=== PATIENT | female | born 1990 | race Caucasian/White ===

== ENCOUNTER 2016-09-23 04:00 | Inpatient (IN) | payer MEDICAID ==
[~2016-09-23] VITALS: Ht 134.6 cm; Wt 94.3 kg
[2016-09-23] MEDS ORDERED: PREN-546 PO (04:54)
[2016-09-23] MEDS ORDERED: OXYTOCIN 10 UNITS/ML VIAL IM SCH (04:55)
[2016-09-23 05:51] LABS: BASOPHILS % (AUTO) 0.2 % (0.0-2.0); EOSINOPHILS # (AUTO) 0.2 K/uL (0-0.4); EOSINOPHILS % (AUTO) 1.1 % (0.0-4.0); HEMOGLOBIN 12.1 g/dL (12.0-16.0); LYMPHOCYTES # (AUTO) 1.3 K/uL (2.5-16.5); LYMPHOCYTES % (AUTO) 8.9 % (20.5-51.1); MEAN CORPUSCULAR HEMOGLOBIN 29 pg (27-31); MEAN CORPUSCULAR HGB CONC 34 g/dL (33-37); MEAN CORPUSCULAR VOLUME 87 fL (80-94); MONOCYTES # (AUTO) 0.5 K/uL (0.8-1.0); MONOCYTES % (AUTO) 3.8 % (1.7-9.3); NEUTROPHILS # (AUTO) 12.2 K/uL (1.8-7.7); PLATELET COUNT (AUTO) 256 K/uL (140-450); RED BLOOD CELL COUNT(AUTO) 4.12 MIL/uL (4.20-5.40); RED CELL DISTRIBUTION WIDTH 13.6 % (11.6-13.7); WHITE BLOOD COUNT (AUTO) 14.2 K/uL (4.8-10.8)
[2016-09-23] MEDS ORDERED: BENZOCAINE/MENTHOL 20%-0.5% 60 GM CAN TP PRN (07:55)
[2016-09-23] MEDS ORDERED: WITCH HAZEL 40 PAD PACKAGE TP PRN (07:55)
[2016-09-23] MEDS ORDERED: METHYLERGONOVINE 0.2 MG/ML AMP IM PRN (07:55)
[2016-09-23] MEDS ORDERED: MEASLES, MUMPS, AND RUBELLA 1 VIAL SQVAC PRN ×2 (07:55→16:00)
[2016-09-23] MEDS ORDERED: HYDROcodone/APAP 5/325 MG 1 TAB TAB PO PRN (07:55)
[2016-09-23] MEDS ORDERED: TEMAZEPAM 15 MG CAP PO PRN (07:55)
[2016-09-23] MEDS ORDERED: SODIUM PHOSPHATE 118 ML ENEM RC PRN (07:55)
[2016-09-23] MEDS ORDERED: ACETAMINOPHEN EXTRA STRENGTH 500 MG TAB PO PRN (07:55)
--- NOTE | 2016-09-23 07:59 | NUR ---
PATIENT HAS BEEN SCREENED AND CATEGORIZED LOW NUTRITION RISK. PATIENT WILL BE SEEN WITHIN 7 DAYS OF ADMISSION. 09/29/[address]
[2016-09-23] MEDS ORDERED: INFLUENZA VIRUS VACCINE QUAD 0.5 ML SYR IMVAC SCH (11:00)
[2016-09-23] MEDS ORDERED: OXYTOCIN 20 UNITS/LR PREMIX 1,000 ML IV SCH (15:57)
[2016-09-23] MEDS ORDERED: KETOROLAC 30 MG/ML VIAL IVP PRN (16:00)
[2016-09-23] MEDS ORDERED: HYDROmorphone 1 MG/ML AMP IVP PRN (16:00)
[2016-09-23] MEDS ORDERED: DOCUSATE SOD/SENNA 50/8.6 MG 1 TAB PO SCH (21:00)
[2016-09-24 06:28] LABS: HEMATOCRIT 32.4 % (36-48); HEMOGLOBIN 10.8 g/dL (12.0-16.0)
[2016-09-24] MEDS ORDERED: IBUPROFEN 600 MG TAB PO PRN (22:00)
[2016-09-25] MEDS ORDERED: SODIUM PHOSPHATE 118 ML ENEM RC PRN (08:00)
[2016-09-25] MEDS ORDERED: oxyCODONE/APAP 5/325 MG 1 TAB TAB PO PRN (08:00)
[2016-09-25] MEDS ORDERED: DOCUSATE SODIUM 100 MG GELCAP PO PRN (08:00)
[2016-09-25] MEDS ORDERED: BISACODYL 5 MG TABEC PO PRN (08:00)
[2016-09-25] MEDS ORDERED: SIMETHICONE 80 MG TAB.CHEW PO PRN (08:00)
[2016-09-25] MEDS ORDERED: FERR325E14 PO (14:14)
[2016-09-25] MEDS ORDERED: ACET-9800 PO (14:15)
== END 2016-09-25 21:08 | disposition home or self-care (01) | DRG 560 ==
LOC: MLD 04:00 → MFCC 07:59
PROVIDERS: ADMIT Obstetrics & Gynecology; ATTEND Obstetrics & Gynecology
PROC: 10E0XZZ Delivery of Products of Conception, External Approach (ICD-10-PCS; principal; 2016-09-23)
PROC: 3E0234Z Introduction of Serum, Toxoid and Vaccine into Muscle, Percutaneous Approach (ICD-10-PCS; 2016-09-23)
DX: O80 Encounter for full-term uncomplicated delivery (principal); Z23 Encounter for immunization; Z37.0 Single live birth; Z3A.39 39 weeks gestation of pregnancy; Z79.899 Other long term (current) drug therapy
CPT/HCPCS: 36415; 59409; 85018; 85025; 86592; 86706; 86762; 86886; 86900; 86901; 90715

== ENCOUNTER 2016-10-03 08:30 | Observation (INO) | payer MEDICAID ==
[~2016-10-03] VITALS: Ht 147.3 cm; Wt 88.0 kg
[~2016-10-03 08:30] MED LIST: ACET-9800 PO; FERR325E14 PO; PREN-546 PO
[2016-10-03 08:40] VITALS: BP 152/95
--- NOTE | 2016-10-03 08:48 | NUR ---
Patient ambulated to bed 03.
--- NOTE | 2016-10-03 08:52 | NUR ---
DENAE Pandya at bedside to evaluate patient.
--- NOTE | 2016-10-03 08:52 | NUR ---
PATIENT PRESENTS TO ED WITH RUQ/RLQ PAIN RADIATING R FLANK . PT STATES HAS HAD DIARRHEA / LOOSE STOOLS X1 WK---[SKIN IS PINK/WARM/DRY; AAOX4 WITH EVEN AND STEADY GAIT; LUNGS CLEAR BL; HR EVEN AND REGULAR; PT DENIES ANY FEVER, CP, SOB, OR COUGH AT THIS TIME; PATIENT STATES PAIN OF 10/10 AT THIS TIME; VSS; PATIENT POSITIONED FOR COMFORT; HOB ELEVATED; BEDRAILS UP X2; BED DOWN. ER MD MADE AWARE OF PT STATUS.
[2016-10-03] MEDS ORDERED: MORPHINE SULFATE 4 MG/ML SYR IM ONE (09:10)
[2016-10-03] MEDS ORDERED: NACL 0.9% 1,000 ML IV SCH (09:10)
[2016-10-03] MEDS ORDERED: ONDANSETRON 4 MG/2 ML VIAL IVP ONE (09:10)
[2016-10-03] MEDS ORDERED: ONDANSETRON 4 MG/2 ML VIAL ONE (09:18)
[2016-10-03] MEDS ORDERED: MORPHINE SULFATE 4 MG/ML SYR ONE (09:19)
[2016-10-03 09:32] LABS: BASOPHILS # (AUTO) 0.2 K/uL (0.00-0.22); BASOPHILS % (AUTO) 1.8 % (0.0-2.0); EOSINOPHILS # (AUTO) 0.2 K/uL (0-0.4); EOSINOPHILS % (AUTO) 1.5 % (0.0-4.0); HEMATOCRIT 40.7 % (36-48); HEMOGLOBIN 13.3 g/dL (12.0-16.0); LYMPHOCYTES # (AUTO) 1.4 K/uL (2.5-16.5); LYMPHOCYTES % (AUTO) 13.6 % (20.5-51.1); MEAN CORPUSCULAR HEMOGLOBIN 29 pg (27-31); MEAN CORPUSCULAR HGB CONC 33 g/dL (33-37); MEAN CORPUSCULAR VOLUME 88 fL (80-94); MONOCYTES # (AUTO) 0.2 K/uL (0.8-1.0); NEUTROPHILS # (AUTO) 8.1 K/uL (1.8-7.7); PLATELET COUNT (AUTO) 419 K/uL (140-450); RED BLOOD CELL COUNT(AUTO) 4.64 MIL/uL (4.20-5.40); RED CELL DISTRIBUTION WIDTH 14.1 % (11.6-13.7); WHITE BLOOD COUNT (AUTO) 10.1 K/uL (4.8-10.8)
[2016-10-03 09:34] LABS: APPEARANCE,URINE SL CLOUDY (CLEAR); BILIRUBIN,URINE NEGATIVE (NEGATIVE); BLOOD, URINE 3+ (NEGATIVE); COLOR,URINE YELLOW (YELLOW); LEUKOCYTE ESTERASE ,URINE NEGATIVE (NEGATIVE); NITRITE, URINE NEGATIVE (NEGATIVE); PH,URINE 5.5 (5.0-9.0); PROTEIN,URINE 2+ (NEGATIVE); UGLUCOSE NEGATIVE (NEGATIVE); UROBILINOGEN,URINE 0.2 EU/dL (0.2 - 1)
[2016-10-03 09:48] LABS: BACTERIA,URINE OCCASSIONAL /HPF (None Seen); SQUAMOUS EPITHELIAL CELL,UR 0-3 (FEW) /LPF (0-3 (FEW))
[2016-10-03 09:48] LABS: ALBUMIN 3.1 g/dL (3.4-5.0); ANION GAP 15.2 (8-16); CALCIUM 8.3 mg/dL (8.5-10.1); CARBON DIOXIDE 22.8 mmol/L (21-32); CREATININE 0.7 mg/dL (0.6-1.3); TOTAL BILIRUBIN 0.7 mg/dL (0.0-1.0); TOTAL PROTEIN, SERUM 7.3 g/dL (6.4-8.2)
[2016-10-03 09:49] LABS: MUCUS,URINE 1+ /LPF (None Seen)
[2016-10-03 09:50] LABS: WBC,URINE 0-2 /HPF (0-5)
[2016-10-03 09:51] LABS: NEUTROPHILS % (AUTO) 81.1 % (42.2-75.2)
[2016-10-03] MEDS ORDERED: MORPHINE SULFATE 4 MG/ML SYR IVP ONE (10:10)
--- NOTE | 2016-10-03 10:22 | NUR ---
Patient going to CT via stephan nash.
--- NOTE | 2016-10-03 10:40 | NUR ---
RETURNED FROM CT
--- NOTE | 2016-10-03 12:34 | NUR ---
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 PT C/O PAIN NOW---WILL MEDICATE AND CONTINUE TO OBSERVE FOR PAIN CONTROL
[2016-10-03] MEDS ORDERED: MORPHINE SULFATE 10 MG/ML SYR IVP ONE (12:35)
--- NOTE | 2016-10-03 12:48 | NUR ---
PENDING ADMISSION-- AND PT INFORMED---MEDICATED WRITTEN, WILL CONTINUE TO OBSERVE AND MONITOR FOR PAIN CONTROL---X2 SR UP JORGEERNEY LOW AND LOCKED POSITION. PT ON MONITOR
[2016-10-03] MEDS: NACL 0.9% 1,000 ML IV SCH ×2 (12:56→16:10)
[2016-10-03] MEDS ORDERED: ACETAMINOPHEN 325 MG TAB PO PRN (13:00)
[2016-10-03] MEDS ORDERED: ONDANSETRON 4 MG/2 ML VIAL IVP PRN (13:00)
[2016-10-03] MEDS ORDERED: HYDROcodone/APAP 5/325 MG 1 TAB TAB PO PRN (13:00)
--- NOTE | 2016-10-03 13:08 | NUR ---
X-Ray at bedside.
--- NOTE | 2016-10-03 14:00 | NUR ---
Patient will be admitted to care of . Admited to . Will go to room. Belongings list completed. Report to .
[2016-10-03 14:12] LABS: CHOL/HDL RATIO 4.4 (1-4.5)
[2016-10-03 14:35] LABS: FREE T4 (FREE THYROXINE) 0.94 ng/dL (0.76-1.46); THYROID STIMULATING HORMONE 0.71 uIU/mL (0.34-3.76)
--- NOTE | 2016-10-03 15:30 | NUR ---
PT ADMITTED FROM ER WITH C/O INTRACTABLE ABDOMINAL PAIN. MEDICATED IN ER WITH MS. PATIENT AAOX4. AMBULATORY WITH ASSIST. IV PATENT AND INTACT. C/O ABD PAIN THAT RADIATES TO LEFT UPPER BACK. PATIENT HAD VAGINAL DELIVERY 10 DAYS AGO WITH NO COMPLICATIONS. PATIENT HAS NAUSEA WITH NO VOMITING AT THIS TIME. CALL LIGHT WITHIN REACH. ORIENTED PT TO HOSPITAL ENVIRONMENT, SAFETY MEASURES ENSURED. WILL CONTINUE TO MONITOR.
[2016-10-03 16:00] VITALS: BP 128/89
[2016-10-03] MEDS: MORPHINE SULFATE 2 MG/ML SYR IVP PRN ×2 (18:36→20:22)
--- NOTE | 2016-10-03 19:05 | NUR ---
RECEIVED REPORT FROM MARIA ALEJANDRA GOINS AT BEDSIDE. INITIAL ASSESSMENT COMPLETED. PT AAOX4. PT'S FAMILY AT BED SIDE. PT STABLE; PT DENIES PAIN OR DISCOMFORT. PT HAS IV TO RIGHT FOREARM G 20; ASYMPTOMATIC, PATENT AND INTACT. PT'S SKIN IS INTACT. ORIENTED PT TO ROOM AND SURROUNDINGS AND USE OF CALL LIGHT. EXPLAINED PLAN OF CARE TO PT AND SHE VERBALIZES UNDERSTANDING. WILL CONTINUE TO MONITOR PT. CALL LIGHT WITHIN REACH.
--- NOTE | 2016-10-03 19:25 | NUR ---
ENDORSED PLAN OF CARE TO RN YAAKOV AT PT BEDSIDE. PT DENIES DISCOMFORT. FAMILY AT BEDSIDE. NO S/S OF ACUTE DISTRESS.
[2016-10-03 20:00] VITALS: BP 138/85
--- NOTE | 2016-10-03 20:25 | NUR ---
PT MEDICATED FOR PAIN 01/06. VS STABLE, WILL CONTINUE TO MONITOR PT.
--- NOTE | 2016-10-03 21:00 | NUR ---
PT STATED THAT SHE FEELS BETTER. SHE STATES THAT SHE IS NOT IN PAIN. CALL LIGHT WITHIN REACH.
--- NOTE | 2016-10-03 23:20 | NUR ---
PT STABLE. PT SLEEPING COMFORTABLY IN BED. WILL CONTINUE TO MONITOR PT.
[2016-10-04] VITALS: BP 130/84
--- NOTE | 2016-10-04 00:52 | NUR ---
PT AMBULATED TO THE RESTROOM. PT STABLE, PT BACK IN BED. CALL LIGHT WITHIN REACH.
[2016-10-04] MEDS: NACL 0.9% 1,000 ML IV SCH (02:30)
--- NOTE | 2016-10-04 03:19 | NUR ---
PT COMPLAINING OF BACK PAIN 02/06. VS STABLE, WILL MEDICATE ORDERED.
[2016-10-04] MEDS: MORPHINE SULFATE 2 MG/ML SYR IVP PRN (03:22)
[2016-10-04 04:00] VITALS: BP 131/87
--- NOTE | 2016-10-04 05:05 | NUR ---
PT REQUESTED TO GET IV DISCONNECTED TO USE THE RESTROOM. PT BACK IN BED NOW. CALL LIGHT WITHIN REACH.
[2016-10-04 05:40] LABS: BASOPHILS # (AUTO) 0.1 K/uL (0.00-0.22); BASOPHILS % (AUTO) 1.3 % (0.0-2.0); EOSINOPHILS # (AUTO) 0.1 K/uL (0-0.4); EOSINOPHILS % (AUTO) 1.3 % (0.0-4.0); HEMATOCRIT 37.8 % (36-48); HEMOGLOBIN 12.4 g/dL (12.0-16.0); LYMPHOCYTES # (AUTO) 1.3 K/uL (2.5-16.5); LYMPHOCYTES % (AUTO) 14.3 % (20.5-51.1); MEAN CORPUSCULAR HEMOGLOBIN 29 pg (27-31); MEAN CORPUSCULAR HGB CONC 33 g/dL (33-37); MEAN CORPUSCULAR VOLUME 87 fL (80-94); MONOCYTES # (AUTO) 0.5 K/uL (0.8-1.0); MONOCYTES % (AUTO) 5.9 % (1.7-9.3); NEUTROPHILS # (AUTO) 7.2 K/uL (1.8-7.7); NEUTROPHILS % (AUTO) 77.2 % (42.2-75.2); PLATELET COUNT (AUTO) 364 K/uL (140-450); RED BLOOD CELL COUNT(AUTO) 4.33 MIL/uL (4.20-5.40); RED CELL DISTRIBUTION WIDTH 13.8 % (11.6-13.7); WHITE BLOOD COUNT (AUTO) 9.2 K/uL (4.8-10.8)
[2016-10-04 06:00] LABS: ANION GAP 11.5 (8-16); CARBON DIOXIDE 26.2 mmol/L (21-32); CREATININE 0.7 mg/dL (0.6-1.3); POTASSIUM 3.7 mmol/L (3.5-5.1)
[2016-10-04 06:04] LABS: MAGNESIUM 1.8 mg/dL (1.8-2.4); PHOSPHORUS 3.6 mg/dL (2.5-4.9)
--- NOTE | 2016-10-04 07:00 | NUR ---
ENDORSED PLAN OF CARE TO MARIA ALEJANDRA DAVIES/WESLY FOR CONTINUITY OF CARE. PT IN STABLE CONDITION.
--- NOTE | 2016-10-04 07:01 | NUR ---
ALERT AND ORIENTED X4, MONGOLIAN SPEAKING, BREATHING EVEN AND UNLABORED ON ROOM AIR, NO SIGNS OF ACUTE DISTRESS, SKIN WARM, DRY AND INTACT, C/O PAIN 1/10 RIGHT FLANK WITH NO C/O NAUSEA AND VOMITING, ABDOMEN SOFT AND ROUND, VOIDS INDEPENDENTLY WITHOUT DIFFICULTY, AMBULATES INDEPENDENTLY, BED IN LOW POSITION WITH SIDE RAILS UP, CALL LIGHT WITHIN REACH.
[2016-10-04 08:00] VITALS: BP 131/94
--- NOTE | 2016-10-04 08:07 | NUR ---
PATIENT HAS BEEN SCREENED AND CATEGORIZED HIGH NUTRITION RISK. PATIENT WILL BE SEEN WITHIN 1-2 DAYS OF ADMISSION. 10/04/16-10/05/[address]
--- NOTE | 2016-10-04 08:20 | NUR ---
RECEIVED NEW ORDER, D/C NPO. START ON REGULAR DIET TOLERATED. NOTED AND CARRIED OUT.
[2016-10-04 09:09] LABS: T4 (THYROXINE) 7.9 ug/dL (4.5-12.0)
[2016-10-04 11:38] VITALS: BP 137/69
[2016-10-04 12:43] LABS: HEMOGLOBIN A1C 5.9 % (4.8-5.6)
[2016-10-04] MEDS ORDERED: ONDA4ODT1 SL (12:48)
[2016-10-04] MEDS ORDERED: ACET-9525 PO (12:48)
[2016-10-04] MEDS ORDERED: DOCU-67 PO (12:48)
--- NOTE | 2016-10-04 13:54 | NUR ---
RECEIVED NEW ORDER FROM DR. LAINEZ. OCTOBER D/C PT. HOME. NOTED AND CARRIED OUT.
--- NOTE | 2016-10-04 14:40 | NUR ---
PT ALERT ORIENTED, MAY D/C HOME ORDERED. EDUCATED TO FOLLOW WITH PCP IN 1 WEEK. DISCHARGE PRESCRIPTIONS REVIEWED WITH INDICATIONS AND SIDE EFFECTS. PT AND FAMILY VERBALIZED UNDERSTANDING. IV LINE, WRIST BANDS AND TELE LEADS REMOVED. FAMILY AT BEDSIDE TO PICKUP PATIENT FOR DISCHARGE HOME. VERBALIZED WILL BE READY BY 1500.
--- NOTE | 2016-10-04 15:08 | NUR ---
PT ALERT ORIENTED, NO SIGNS OF ACUTE DISTRESS, DENIES OF ANY PAIN AT THIS TIME. MAY D/C TODAY. PERSONAL BELONGINGS WITH PT UPON DISCHARGE. WHEELED OUT TO FRONT LOBBY WITH FAMILY. TO GO HOME WITH PRIVATE AUTO
== END 2016-10-04 15:08 | disposition home or self-care (01) ==
LOC: MED 08:30 → MTU 12:47
PROVIDERS: ADMIT Family Medicine; ATTEND Family Medicine
DX: O26.899 Other specified pregnancy related conditions, unspecified trimester (principal); R10.31 Right lower quadrant pain; R10.11 Right upper quadrant pain; Z3A.00 Weeks of gestation of pregnancy not specified
CPT/HCPCS: 36415; 71010; 74177; 80048; 80053; 80061; 81001; 81025; 82150; 83036; 83690; 83735; 84100; 84436; 84439; 84443; 84479; 85025; 87081; 96361; 96374; 96375; 96376; 99285; G0378; J2270; J2405; J7030; Q0092; Q9967; 96372